=== PATIENT | male | born 1975 | race Caucasian/White ===

== ENCOUNTER 2017-07-07 09:40 | Day surgery (SDC) | END 2017-07-07 17:09 | disposition home or self-care (01) | DX: K80.10 Calculus of gallbladder with chronic cholecystitis without obstruction (principal); I10 Essential (primary) hypertension; E66.9 Obesity, unspecified; Z68.35 Body mass index [BMI] 35.0-35.9, adult | CPT/HCPCS: 47562; 88304; J0690; J1100; J1170; J2250; J2405; J3010; Z7512; Z7610 ==